=== PATIENT | male | born 1950 | race Caucasian/White ===

== ENCOUNTER 2019-06-09 10:30 | Emergency (ER) | payer MEDICARE, OTHER ==
[~2019-06-09] VITALS: Ht 177 cm; Wt 99.5 kg
[2019-06-09] MEDS ORDERED: NAPROXEN 250 MG (NAPROSYN) TABLET PO STA (10:46)
[2019-06-09] MEDS ORDERED: HYDROcodone/APAP 7.5 MG/325 MG (LORTAB, LORCET PLUS) TABLET PO STA (10:46)
--- NOTE | 2019-06-09 10:55 | NUR ---
SEE LIST FOR CURRENT MEDS
--- NOTE | 2019-06-09 10:58 | ED Back Pain ---
General Chief Complaint: Back Problems Stated Complaint: BACK PAIN Source of Information: Patient Exam Limitations: No Limitations History of Present Illness Date Seen by Provider: Jun 09, 2019 Time Seen by Provider: 10:41 Initial Comments Here with report of left lower back pain that started yesterday and is much worse today. He has not taken anything for the pain. Denies bowel or bladder incontinence. Denies recent injury otherwise. States he was working on chicken coops yesterday and was put in charts up. He was given reaching and twisting. He has had problems with his back. Also complains of left knee issues and was supposed to get an x-ray of that. He states it was hurting quite a bit yesterday but it popped this morning and now feels better. Denies fever or chills. Denies numbness between his legs. Location: Lumbar Spine, Paraspinous Muscles Timing/Duration: 1 Hour Severity: Moderate Pain/Injury Location: Back Radiation: Buttocks Method of Injury: Unknown Modifying Factors: Improves With Immobilization; Worse With Movement Associated Symptoms: muscle spasms; No fever, No weakness, No numbness in legs/feet, No tingling in legs/feet, No sensory/motor loss; lower back pain; No loss of bladder control, No loss of bowel control Allergies and Home Medications Allergies Coded Allergies: No Known Drug Allergies (Unverified , 06/09/19) Patient Home Medication List Home Medication List Reviewed: Yes Review of Systems Constitutional: see HPI; No chills, No fever Respiratory: no symptoms reported Cardiovascular: no symptoms reported Gastrointestinal: no symptoms reported Genitourinary: no symptoms reported Musculoskeletal: see HPI, back pain, joint pain Skin: No change in color, No dryness Psychiatric/Neurological: Denies Headache, Denies Numbness, Denies Paresthesia, Denies Weakness Past Comjvzr-Lulvzn-Hcwezl Hx Past Med/Social Hx: Reviewed Nursing Past Med/Soc Hx Patient Social History Alcohol Use: Denies Use Recreational Drug Use: No Smoking Status: Current Everyday Smoker Type Used: Cigarettes Recent Foreign Travel: No Contact w/Someone Who Travel: No Recent Hopitalizations: No Physical Abuse: No Sexual Abuse: No Seasonal Allergies Seasonal Allergies: No Past Medical History Surgeries: No Respiratory: No Cardiac: Yes Hypertension Neurological: No Gastrointestinal: No Musculoskeletal: Yes Arthritis Endocrine: Yes Diabetes, Non-Insulin dep HEENT: No Cancer: No Psychosocial: No Integumentary: No Family Medical History Reviewed Nursing Family Hx No Pertinent Family Hx Physical Exam Vital Signs Vital Signs - First Documented 06/09/19 10:35 Temp 35.7 Pulse 72 Resp 18 B/P (MAP) 171/101 (124) Pulse Ox 96 Capillary Refill : Height, Weight, BMI Height: '" Weight: lbs. oz. kg; BMI Method: General Appearance: WD/WN, Mild Distress Cardiovascular: Regular Rate, Rhythm, No Murmur Respiratory: Lungs Clear, Normal Breath Sounds Gastrointestinal: Non Tender, Soft Back: Muscle Spasm, Other (tender to the area of the left low lumbar region and lateral spine) Extremity: Normal Range of Motion, Non Tender, No Calf Tenderness, Other (effusion to the medial aspect of the knee proximal to the patella. Balotting noted) Neurologic/Psychiatric: Alert, Oriented x3 Skin: Normal Color, Warm/Dry Progress/Results/Core Measures Results/Orders My Orders Orders - ANA SOUZA MD Knee, Left, 3 Views (06/09/19 10:46) Ct Lumbar Spine Wo (06/09/19 10:46) Hydrocodone/Apap 7.5/325 Tab (Lortab 7. (06/09/19 10:46) Naproxen Tablet (Naprosyn Tablet) (06/09/19 10:46) Vital Signs/I&O 06/09/19 10:35 Temp 35.7 Pulse 72 Resp 18 B/P (MAP) 171/101 (124) Pulse Ox 96 Progress Progress Note : Progress Note Seen and evaluated. I offered a variety of pain medicine options and he would prefer pills. Hydrocodone 7.5 one tab by mouth. Naprosyn 500 mg by mouth. We will get CT of the lumbar spine as well as x-ray of the left knee due to the history of popping yesterday. Monitor patient. Once once and overall feeling a little better. Able to stand without assistance. He thinks he can make it with some assistance regarding medications until you get to his chiropractor doctor on Tuesday. We will write a short prescription for hydrocodone. Discharged home with return precautions. Patient verbalize understanding instructions and agreement with plan Diagnostic Imaging Diagonstic Imaging: CT Plain Films/CT/US/NM/MRI: other Comments NAME: TEVIN EDUARDO [facility] REC#: [id number] PT STATUS: REG ER : 1950 PHYSICIAN: ANA SOUZA MD ADMIT DATE: 06/09/19/ER Signed Date of Exam: 06/09/19 CT LUMBAR SPINE WO PROCEDURE: CT lumbar spine without contrast. TECHNIQUE: Multiple contiguous axial images were obtained through the lumbar spine without the use of intravenous contrast. Sagittal and coronal reformations were then performed. Auto Exposure Controls were utilized during the CT exam to meet ALARA standards for radiation dose reduction. INDICATION: Back pain. FINDINGS: No comparison available. The alignment of the lumbar spine is normal. No fracture seen. There is mild disc height loss at L5/S1. There is mild L5/S1 facet arthropathy. Remaining facet joints are normal. There is are mild disc bulges at L2-S1. This results in mild L3/L4 and L4/L5 neural foraminal stenosis bilaterally. No acute fracture is seen. No spinal canal stenosis. There is no soft tissue abnormality. Aorta is normal in caliber. IMPRESSION: 1. Disc bulges from L2-S1 with mild L3-L5 neuroforaminal stenosis bilaterally. 2. No acute fracture. Dictated by: Dictated on workstation # [id number] Dict: 06/09/19 1128 Trans: 06/09/19 1131 Interpreted by: KRISTI HERZOG MD Electronically signed by: KRISTI HERZOG MD 06/09/19 1131 Diagonstic Imaging: Xray Plain Films/CT/US/NM/MRI: knee Comments NAME: TEVIN EDUARDO [facility] REC#: [id number] PT STATUS: REG ER : 1950 PHYSICIAN: ANA SOUZA MD ADMIT DATE: 06/09/19/ER Draft Date of Exam:06/09/19 KNEE, LEFT, 3 VIEWS EXAMINATION: Left knee three views. HISTORY: Knee pain. FINDINGS: No comparison available. There is moderate medial compartment predominant tricompartmental osteoarthritis of the left knee. There is a moderate-sized knee joint effusion. No acute fracture is seen. Vascular calcifications are present. IMPRESSION: 1. Moderate medial compartment predominant tricompartmental osteoarthritis of the left knee with a moderate knee joint effusion. Dictated on workstation # [id number] Dict: 06/09/19 1156 Trans: 06/09/19 1205 [facility] [id number] Interpreted by: KRISTI HERZOG MD Electronically signed by: Reviewed: Reviewed by Me Departure Impression Primary Impression: Lumbar radiculopathy Additional Impression: Osteoarthritis of left knee Qualified Codes: M17.12 - Unilateral primary osteoarthritis, left knee Disposition: HOME, SELF-CARE Condition: Improved Departure-Patient Inst. Decision time for Depature: 12:18 Referrals: JEANNE DOCKERY MD (PCP/Family) Primary Care Physician Patient Instructions: Low Back Pain (DC), Radiculopathy (DC), Osteoarthritis (DC) Add. Discharge Instructions: All discharge instructions reviewed with patient and/or family. Voiced understanding. Continue home medications as previously prescribed. You may take Tylenol/acetaminophen 1000 mg every 6-8 hours as needed for pain if you're not taking your prescribed pain medicine. Do not take both at the same time as they both have acetaminophen in them. Follow-up with your doctor on Tuesday for recheck and further evaluation. Return for worse pain, weakness, numbness between your legs, difficulty with walking or going to the bathroom or other concerns as needed. Scripts Hydrocodone Bit/Acetaminophen (LORTAB 7.5 MG TABLET) 1 Ea Tablet 1 EACH PO Q6H, #8 TAB 0 Refills Prov: ANA SOUZA MD 06/09/19 ANA SOUZA MD Jun 09, 2019 10:58
--- NOTE | 2019-06-09 11:33 | Diagnostic Imaging Report ---
PROCEDURE: CT lumbar spine without contrast. TECHNIQUE: Multiple contiguous axial images were obtained through the lumbar spine without the use of intravenous contrast. Sagittal and coronal reformations were then performed. Auto Exposure Controls were utilized during the CT exam to meet ALARA standards for radiation dose reduction. INDICATION: Back pain. FINDINGS: No comparison available. The alignment of the lumbar spine is normal. No fracture seen. There is mild disc height loss at L5/S1. There is mild L5/S1 facet arthropathy. Remaining facet joints are normal. There is are mild disc bulges at L2-S1. This results in mild L3/L4 and L4/L5 neural foraminal stenosis bilaterally. No acute fracture is seen. No spinal canal stenosis. There is no soft tissue abnormality. Aorta is normal in caliber. IMPRESSION: 1. Disc bulges from L2-S1 with mild L3-L5 neuroforaminal stenosis bilaterally. 2. No acute fracture. Dictated by: Dictated on workstation # [id number]
--- NOTE | 2019-06-09 12:05 | Diagnostic Imaging Report ---
EXAMINATION: Left knee three views. HISTORY: Knee pain. FINDINGS: No comparison available. There is moderate medial compartment predominant tricompartmental osteoarthritis of the left knee. There is a moderate-sized knee joint effusion. No acute fracture is seen. Vascular calcifications are present. IMPRESSION: 1. Moderate medial compartment predominant tricompartmental osteoarthritis of the left knee with a moderate knee joint effusion. Dictated by: Dictated on workstation # [id number]
[2019-06-09] MEDS ORDERED: HYDR-34 PO (12:20)
[2019-06-09 12:28] VITALS: BP 171/101
--- OUTSIDE RECORDS SUMMARY | 2019-07-02 15:14 | XMS REPORT | Continuity of Care Document ---
Author Organization Unknown POS Address Unknown SP Phone Unavailable SP Allergies Active Description Code Type Severity POS Reaction Onset Reported/Identified POS to Patient Clinical Status POS Yes No Known Drug Allergies [id number] Drug SP Unknown N/A 06/09/2019 SP SP Medications There is no data. 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 Results There is no data. Encounters ACCT No. Visit Date/Time Discharge Status POS Pt. Type Provider Facility Loc./Un it POS Complaint POS [id number] 06/09/2019 10:32:00 019 12:29:00 SP DIS Emergency ANA SOUZA MD Via SP [facility] ER BACK PAIN SP
== END 2019-06-09 12:29 | disposition home or self-care (01) ==
LOC: ER 10:32
DX: M54.16 Radiculopathy, lumbar region (principal); M17.12 Unilateral primary osteoarthritis, left knee; I10 Essential (primary) hypertension; E11.9 Type 2 diabetes mellitus without complications; F17.210 Nicotine dependence, cigarettes, uncomplicated
CPT/HCPCS: 72131; 73562

== ENCOUNTER 2021-09-17 09:46 | Outpatient (RCR) | payer MEDICARE, MEDICAID ==
[~2021-09-17 09:46] MED LIST: HYDR-34 PO
== END 2021-09-21 | disposition home or self-care (01) ==
PROVIDERS: ATTEND Pain Medicine Interventional Pain Medicine
DX: M54.17 Radiculopathy, lumbosacral region (principal); M75.41 Impingement syndrome of right shoulder; I10 Essential (primary) hypertension

== ENCOUNTER 2021-10-15 09:15 | Outpatient (RCR) | payer MEDICARE, MEDICAID | END 2021-10-19 | disposition home or self-care (01) | PROVIDERS: ATTEND Pain Medicine Interventional Pain Medicine | DX: M54.17 Radiculopathy, lumbosacral region (principal); M75.41 Impingement syndrome of right shoulder; I10 Essential (primary) hypertension ==

== ENCOUNTER → 2021-11-19 | Outpatient (RCR) | payer MEDICARE, MEDICAID | END | disposition home or self-care (01) | PROVIDERS: ATTEND Pain Medicine Interventional Pain Medicine | DX: M54.17 Radiculopathy, lumbosacral region (principal); M75.41 Impingement syndrome of right shoulder; I10 Essential (primary) hypertension; E11.9 Type 2 diabetes mellitus without complications ==

== ENCOUNTER → 2021-12-17 | Outpatient (CLI) | payer MEDICARE, MEDICAID | END | disposition home or self-care (01) | LOC: PREOP 05:28 | PROVIDERS: ATTEND Specialist | DX: Z01.818 Encounter for other preprocedural examination (principal) ==

== ENCOUNTER 2021-12-18 12:34 | Outpatient (RCR) | payer MEDICARE, MEDICAID | END 2021-12-19 | disposition home or self-care (01) | PROVIDERS: ATTEND Pain Medicine Interventional Pain Medicine | DX: M54.17 Radiculopathy, lumbosacral region (principal); M75.41 Impingement syndrome of right shoulder; I10 Essential (primary) hypertension; E11.9 Type 2 diabetes mellitus without complications ==

== ENCOUNTER 2022-01-14 09:53 | Outpatient (RCR) | payer MEDICARE, MEDICAID | END 2022-01-19 | disposition home or self-care (01) | PROVIDERS: ATTEND Pain Medicine Interventional Pain Medicine | DX: M54.17 Radiculopathy, lumbosacral region (principal); M75.41 Impingement syndrome of right shoulder; I10 Essential (primary) hypertension; E11.9 Type 2 diabetes mellitus without complications ==

== ENCOUNTER 2022-02-17 09:10 | Outpatient (RCR) | payer MEDICARE, MEDICAID | END 2022-02-18 | disposition home or self-care (01) | PROVIDERS: ATTEND Pain Medicine Interventional Pain Medicine | DX: M54.17 Radiculopathy, lumbosacral region (principal); M75.41 Impingement syndrome of right shoulder; I10 Essential (primary) hypertension; E11.9 Type 2 diabetes mellitus without complications ==

== ENCOUNTER 2022-03-10 09:15 | Outpatient (RCR) | payer MEDICARE, MEDICAID | END 2022-03-21 | disposition home or self-care (01) | PROVIDERS: ATTEND Pain Medicine Interventional Pain Medicine | DX: M54.17 Radiculopathy, lumbosacral region (principal); M75.41 Impingement syndrome of right shoulder; I10 Essential (primary) hypertension; E11.9 Type 2 diabetes mellitus without complications ==

== ENCOUNTER 2022-04-07 09:07 | Outpatient (RCR) | payer MEDICARE, MEDICAID | END 2022-04-21 | disposition home or self-care (01) | PROVIDERS: ATTEND Pain Medicine Interventional Pain Medicine | DX: M54.17 Radiculopathy, lumbosacral region (principal); M75.41 Impingement syndrome of right shoulder; I10 Essential (primary) hypertension; E11.9 Type 2 diabetes mellitus without complications ==

== ENCOUNTER → 2023-07-21 | Outpatient (RCR) | payer MEDICARE, MEDICAID | END | disposition home or self-care (01) | PROVIDERS: ATTEND Family Medicine | DX: M54.32 Sciatica, left side (principal); M54.31 Sciatica, right side ==